=== PATIENT | female | born 1930 | race Caucasian/White ===

== ENCOUNTER 2017-03-26 12:01 | Emergency (ER) | payer OTHER ==
[~2017-03-26] VITALS: Ht 152.4 cm; Wt 61.2 kg
[~2017-03-26 12:01] MED LIST: AMBIEN10 MG; ASA81 MG; AVANDAMET 2 MG/1 TA1; DIOVAN40 MG
[2017-03-26] MEDS ORDERED: LISINOPRIL20 MG (12:46)
[2017-03-26] MEDS ORDERED: INDAPAMIDE2.5 MG (12:46)
[2017-03-26] MEDS ORDERED: BUSPIRONE HCL15 MG (12:47)
[2017-03-26] MEDS ORDERED: JANUVIA100 MG (12:47)
[2017-03-26] MEDS ORDERED: SIMVASTATIN40 MG (12:47)
== END 2017-03-26 16:04 | disposition home or self-care (01) ==
LOC: ER 12:01
DX: S01.02XA Laceration with foreign body of scalp, initial encounter (principal); R55 Syncope and collapse; W26.8XXA Contact with other sharp object(s), not elsewhere classified, initial encounter; Y93.89 Activity, other specified; Y92.018 Other place in single-family (private) house as the place of occurrence of the external cause; Y99.8 Other external cause status

== ENCOUNTER → 2017-04-05 | Emergency (ER) | payer OTHER ==
[~2017-04-05] VITALS: Ht 157.5 cm; Wt 60.8 kg
[~2017-04-05] MED LIST changes: +BUSPIRONE HCL15 MG; +INDAPAMIDE2.5 MG; +JANUVIA100 MG; +LISINOPRIL20 MG; +SIMVASTATIN40 MG
== END | disposition home or self-care (01) ==
LOC: ER 10:14
DX: Z48.02 Encounter for removal of sutures (principal)